=== PATIENT | male | born 1995 | race Hispanic/Latino ===

== ENCOUNTER 2016-06-01 12:02 | Day surgery (SDC) | payer OTHER ==
[~2016-06-01] VITALS: Ht 170.2 cm; Wt 64.0 kg
[~2016-06-01 12:02] MED LIST: FAMOTIDINE20 MG PO; LOVENOX40 MG/0.4 SC; OXYCODONE HCL5 MG PO; OXYCONTIN15 MG PO; POLYETHYLENE GL17 GM PO; SENNA LAX8.6 MG PO
[2016-06-01 12:21] VITALS: BP 131/77
[2016-06-01 12:47] LABS: HEMATOCRIT 47.7 % (38.0-50.0); MCHC 34.8 G/DL (30.0-36.0); MCV 83.4 FL (86-99); PLATELET COUNT 240 K/uL (156-360); RBC DIS.WIDTH-CV 13.3 % (11.8-14.6); RBC DIS.WIDTH-SD 39.5 % (39-53); RED BLOOD COUNT 5.72 M/uL (4.00-5.50); WHITE BLOOD COUNT 6.4 K/uL (4.1-10.2)
[2016-06-01 13:23] LABS: ANION GAP 10 MEQ/L (2-14); CHLORIDE 101 MEQ/L (99-109); POTASSIUM 3.7 MEQ/L (3.7-5.4); SAMPLE HEMOLYSIS CHECK 0; SAMPLE ICTERIC CHECK 0; SAMPLE LIPEMIA CHECK 0; SODIUM 139 MEQ/L (136-147); TOTAL BILIRUBIN 0.8 MG/DL (0.0-1.0)
[2016-06-01 13:28] LABS: ALKALINE PHOSPHATASE 144 IU/L (3-129); GFR ESTIMATE (CALCULATED) > 59 mL/min/; GLUCOSE 88 mg/dL (70-99); UREA NITROGEN (BUN) 8 mg/dL (9-23)
[2016-06-01 13:51] LABS: AMPHETAMINES QUANT VALUE 0 NG/ML; BARBITUATES QUANT VALUE 0 NG/ML; BENZODIAZEPINES QUANT VALUE 0 NG/ML; BENZODIAZEPINES, URINE SCREEN Negative (200 ng/mL); OPIATES QUANTITATIVE VALUE 0 NG/ML; PHENCYCLIDINE QUANT VALUE 0 NG/ML
[2016-06-01 16:25] VITALS: BP 136/81
[2016-06-01 16:47] VITALS: BP 175/91
[2016-06-01 17:30] VITALS: BP 121/78
[2016-06-01 17:56] VITALS: BP 122/80
== END 2016-06-01 18:06 | disposition home or self-care (01) ==
LOC: SDC 12:02
PROVIDERS: Orthopaedic Surgery
PROC: 0QPF04Z Removal of Internal Fixation Device from Left Patella, Open Approach (ICD-10-PCS; principal; 2016-06-01)
DX: T84.84XA Pain due to internal orthopedic prosthetic devices, implants and grafts, initial encounter (principal); G89.28 Other chronic postprocedural pain; Y83.1 Surgical operation with implant of artificial internal device as the cause of abnormal reaction of the patient, or of later complication, without mention of misadventure at the time of the procedure
CPT/HCPCS: 73560; 76000; 80053; 80306 90; 85027; J0131; J0690; J1170; J2175; J2250; J3010